=== PATIENT | female | born 1980 | race Two or more races ===

== ENCOUNTER 2020-06-27 08:23 | Outpatient (CLI) | payer OTHER | END 2020-06-27 08:33 | disposition home or self-care (01) | LOC: TOM 08:23 | PROVIDERS: ATTEND Obstetrics & Gynecology | DX: K59.09 Other constipation (principal); R16.0 Hepatomegaly, not elsewhere classified; D18.09 Hemangioma of other sites; R59.0 Localized enlarged lymph nodes ==